=== PATIENT | male | born 1985 | race Two or more races ===

== ENCOUNTER 2022-11-14 23:39 | Emergency (ER) | payer MEDICAID ==
[~2022-11-14] VITALS: Ht 182.9 cm; Wt 104.3 kg
--- NOTE | 2022-11-14 23:58 | NUR ---
Patient ambulated into room #2, assisted into gown and placed on monitor. Informed of plan of care at this time. bedside EKG in progress, #20g established in left ac, blood collected and sent to lab. at bedside for exam. no s/s of seizure activity at this time.
[2022-11-15] MEDS ORDERED: ASPIRIN 81 MG TAB.CHEW PO ONE
[2022-11-15] MEDS ORDERED: ASPIRIN 81 MG TAB.CHEW ONE (00:10)
--- NOTE | 2022-11-15 00:11 | NUR ---
Chest xray at bedside.
--- NOTE | 2022-11-15 00:11 | NUR ---
Seizure precautions placed
[2022-11-15 00:15] LABS: HEMATOCRIT 44.8 % (36.7-47.1); MEAN CORPUSCULAR HEMOGLOBIN 28.5 uug (23.8-33.4); PLATELET COUNT (AUTO) 246 K/uL (152-348)
[2022-11-15 00:59] LABS: CARBON DIOXIDE 27 mmol/L (21-32); CHLORIDE 101 mmol/L (98-107); GLUCOSE 89 mg/dL (74-106); POTASSIUM 3.4 mmol/L (3.5-5.1); UREA NITROGEN, BLOOD 15 mg/dL (7-18)
[2022-11-15 01:12] LABS: ALANINE AMINOTRANSFERASE 18 U/L (16-63); ALKALINE PHOSPHATASE 76 U/L (50-136); ASPARTATE AMINOTRANSFERASE 18 U/L (15-37); BILIRUBIN,DIRECT 0.2 mg/dL (0.0-0.2); TOTAL PROTEIN, SERUM 8.1 g/dL (6.4-8.2)
[2022-11-15] MEDS ORDERED: PHENYTOIN SODIUM IV 1,000 MG in IV NORMAL SALINE 100 ML IV ONE (01:15)
[2022-11-15] MEDS ORDERED: PHENYTOIN SODIUM 100 MG/2 ML VIAL IV ONE (01:16)
[2022-11-15] MEDS ORDERED: PHEN100C4 PO (01:25)
--- NOTE | 2022-11-15 01:47 | NUR ---
Patient c/o of itchiness and bilateral arms. Patient developed a weal on the inside of right elbow. Dr. Rosas montalvo.
[2022-11-15] MEDS ORDERED: diphenhydrAMINE 50 MG/1 ML VIAL ONE (01:49)
--- NOTE | 2022-11-15 01:55 | NUR ---
Benadryl 50mg given IV for bilateral arm itchiness and weal to right elbow.
[2022-11-15] MEDS ORDERED: diphenhydrAMINE 50 MG/1 ML VIAL IV ONE (02:00)
--- NOTE | 2022-11-15 02:02 | NUR ---
Patient given food tray.
--- NOTE | 2022-11-15 02:15 | NUR ---
Patient sleeping and resting comfortably in bed, no distress noted. Patient stated decreased pruritus after Benadryl administration.
--- NOTE | 2022-11-15 02:19 | NUR ---
Patient ate 100% of food tray (meatloaf, mashed potatoes and gravy, 1 orange juice, 1 cranberry juice).
--- NOTE | 2022-11-15 02:46 | NUR ---
Patient pulled out IV, c/o left forearm pain at IV insertion. No bleeding noted.
--- NOTE | 2022-11-15 02:55 | NUR ---
Per Dr. Pillai, no saline lock needed at this time.
--- NOTE | 2022-11-15 06:20 | NUR ---
Patient signed homeless waiver form. Patient refused avaliable resources/assistance at this time. Given homeless packet with avaliable residential/assistance. Patient refused clothing, arrived to ER with appropriate clothing for weather. Pants, jacket, shirt, shoes. Given 2 orange juices per patients request.
--- NOTE | 2022-11-15 06:32 | NUR ---
Patient discharged to home in stable condition. Written and verbal after care instructions given. Patient verbalizes understanding of instructions. Stressed follow up or return to ER for worsening s/s.
[2022-11-15 06:47] VITALS: BP 110/66
== END 2022-11-15 06:36 | disposition home or self-care (01) ==
LOC: ER 23:39
DX: R07.9 Chest pain, unspecified (principal); G40.909 Epilepsy, unspecified, not intractable, without status epilepticus; S09.90XS Unspecified injury of head, sequela; V49.9XXS Car occupant (driver) (passenger) injured in unspecified traffic accident, sequela; J45.909 Unspecified asthma, uncomplicated; R01.1 Cardiac murmur, unspecified; F17.210 Nicotine dependence, cigarettes, uncomplicated; Z88.8 Allergy status to other drugs, medicaments and biological substances; Z59.00 Homelessness unspecified
CPT/HCPCS: 36415; 93005; 71045; 80076; 80048; 80185; 83880; 85025; 84484 ×2; 99285; 96365; 96375; J1200; J1165